=== PATIENT | male | born 1990 | race Caucasian/White ===

== ENCOUNTER 2024-09-18 09:38 | Outpatient (OUT) | payer OTHER, SELFPAY | END 2024-09-18 09:39 | disposition home or self-care (01) | LOC: PST 09:40 | PROVIDERS: Visit Provider Surgery | DX: Z01.818 Encounter for other preprocedural examination (principal); R22.31 Localized swelling, mass and lump, right upper limb ==

== ENCOUNTER 2024-09-30 12:40 | Day surgery (SDC) | payer OTHER, SELFPAY ==
[2024-09-30 12:50] VITALS: BP 133/82; PULSE 69; TEMP 36.2; O2SAT 98; BMI 30.5
--- OUTSIDE RECORDS SUMMARY | 2024-09-30 13:01 | XMS_ITS | CCD ---
Author Organization [facility] Inform ion Partnership [facility] Care Team Providers Care Visual Training Aide Name Role Phone RELL MARRERO Referring Unavailable RELL MARRERO Primary Care Unavailable LON MCCLAIN Attending Unavailable Rell Marrero MD Primary Care Provider Problems Problem Classification Problem Date Documented Da te Episodic/Chronic Other and unspecified benign neoplasm (2 sources) Lipoma of shoulder; Translations: [Benign lipomatous neoplasm of skin and subcutaneous tissue of right arm] 08-20-2024 Episodic Results Test Name Value Interpretation Reference Range Facil ity HF ALT (SGPT)on 02-20-2024 ALT [Catalytic activity/Vol] 56 U/L High 0-50 [facility] Comment on above: Performed By: #### H F BMP, HFAST, HFLIPD, HFALT, HFTSH, HFFT4 #### [address] [address] Ph. [phone] HF AST (SGOT)on 02-20-2024 AST [Catalytic activity/Vol] 33 U/L Normal 17-59 [facility] Comment on above: Performed By: #### H F BMP, HFAST, HFLIPD, HFALT, HFTSH, HFFT4 #### [address] [address] Ph. [phone] HF Basic Metabolic Panelon 0 02-20-2024 Calcium [Mass/Vol] 9.2 mg/dL Normal 8.4-10.2 [facility] Comment on above: Performed By: #### H F BMP, HFAST, HFLIPD, HFALT, HFTSH, HFFT4 #### [address] [address] Ph. [phone] Chloride [Moles/Vol] 106 mmol/L Normal 98-107 [facility] Comment on above: Performed By: #### H F BMP, HFAST, HFLIPD, HFALT, HFTSH, HFFT4 #### [address] [address] Ph. [phone] CO2 [Moles/Vol] 28 mmol/L Normal 22-32 [facility] Comment on above: Performed By: #### H F BMP, HFAST, HFLIPD, HFALT, HFTSH, HFFT4 #### [place] [address] Ph. [phone] Creatinine [Mass/Vol] 1.07 mg/dL Normal 0.66-1.25 [facility] Comment on above: Performed By: #### H F BMP, HFAST, HFLIPD, HFALT, HFTSH, HFFT4 #### [place] [address] Ph. [phone] GFR/1.73 sq M.predicted among non-blacks MDRD (S/P/Bld) [Vol rate/Area] 92 mL/min/{1.73_m2} Normal >60 [facility] Comment on above: Result Comment: GFR calculated using CKD-EPI (2020) formula.\X0D0A\Stage 1 Kidney damage (e.g., protein in the urine) with normal GFR >=90\X0D0A\Stage 2 Kidney damage with mild decrease in GFR 60-89\X0D0A\Stage 3a Moderate decrease in GFR 45-59\X0D0A\Stage 3b Moderate decrease in GFR 30-44\X0D0A\Stage 4 Severe reduction in GFR 15-29\X0D0A\Stage 5 Kidney failure <15 Performed By: #### H F BMP, HFAST, HFLIPD, HFALT, HFTSH, HFFT4 #### [place] [address] Ph. [phone] Glucose [Mass/Vol] 92 mg/dL Normal 65-100 [facility] Comment on above: Performed By: #### H F BMP, HFAST, HFLIPD, HFALT, HFTSH, HFFT4 #### [place] [id number] Ph. [phone] Potassium [Moles/Vol] 4.7 mmol/L Normal 3.6-5.0 [facility] Comment on above: Performed By: #### H F BMP, HFAST, HFLIPD, HFALT, HFTSH, HFFT4 #### [place] [address] Ph. [phone] Sodium [Moles/Vol] 142 mmol/L Normal 135-145 [facility] Comment on above: Performed By: #### H F BMP, HFAST, HFLIPD, HFALT, HFTSH, HFFT4 #### [place] [address] Ph. [phone] Urea nitrogen [Mass/Vol] 15 mg/dL Normal 9-20 [facility] Comment on above: Performed By: #### H F BMP, HFAST, HFLIPD, HFALT, HFTSH, HFFT4 #### [place] [address] Ph. [phone] HF CBCon 02-20-2024 Erythrocyte distribution width (RBC) [Ratio] 12.5 % Normal 11.5-14.5 [facility] Comment on above: Performed By: #### H FCBC #### [place] [id number] Ph. [phone] Hematocrit (Bld) [Volume fraction] 48 % Normal 42.0-52.0 [facility] Comment on above: Performed By: #### H FCBC #### [place] [address] Ph. [phone] Hemoglobin (Bld) [Mass/Vol] 16.2 g/dL Normal 13.5-17.5 [facility] Comment on above: Performed By: #### H FCBC #### [address] [address] Ph. [phone] MCH (RBC) [Entitic mass] 29.1 pg Normal 27.0-35.0 [facility] Comment on above: Performed By: #### H FCBC #### [place] [address] Ph. [phone] MCHC (RBC) [Mass/Vol] 33.8 g/dL Normal 32.0-36.0 [facility] Comment on above: Performed By: #### H FCBC #### [place] [address] Ph. [phone] MCV (RBC) [Entitic vol] 86.3 fL Normal 80.0-100.0 [facility] Comment on above: Performed By: #### H FCBC #### [place] [address] Ph. [phone] Platelet mean volume (Bld) [Entitic vol] 10.9 fL Normal 9.4-12.3 [facility] Comment on above: Performed By: #### H FCBC #### [place] [address] Ph. [phone] Platelets (Bld) [#/Vol] 279 10*3/uL Normal 150-450 [facility] Comment on above: Performed By: #### H FCBC #### [place] [address] Ph. [phone] RBC (Bld) [#/Vol] 5.56 10*6/uL Normal 4.70-6.10 [facility] Comment on above: Performed By: #### H FCBC #### [address] [place] [address] Ph. [phone] WBC (Bld) [#/Vol] 5.2 10*3/uL Normal 3.7-11.0 [facility] Comment on above: Performed By: #### H FCBC #### [place] [address] Ph. [phone] HF Free T4on 02-20-2024 Free T4 [Mass/Vol] 0.89 ng/dL Normal 0.78-2.19 [facility] Comment on above: Performed By: #### H F BMP, HFAST, HFLIPD, HFALT, HFTSH, HFFT4 #### [place] [id number] Ph. [phone] HF Lipid Panelon 02-20-2024 Cholesterol [Mass/Vol] 203 mg/dL High 100-200 [facility] Comment on above: Result Comment: <200 mg/dL is recommended cholesterol level. Performed By: #### H F BMP, HFAST, HFLIPD, HFALT, HFTSH, HFFT4 #### [place] [address] Ph. [phone] Cholesterol in HDL [Mass/Vol] 34 mg/dL Low >40 [facility] Comment on above: Performed By: #### H F BMP, HFAST, HFLIPD, HFALT, HFTSH, HFFT4 #### [address] [address] Ph. [phone] Cholesterol in LDL [Mass/Vol] 133 mg/dL High 20-100 [facility] Comment on above: Performed By: #### H F BMP, HFAST, HFLIPD, HFALT, HFTSH, HFFT4 #### [address] [address] Ph. [phone] Cholesterol.total/Ch olesterol in HDL [Mass ratio] 6 {ratio} High 1-5 [facility] Comment on above: Performed By: #### H F BMP, HFAST, HFLIPD, HFALT, HFTSH, HFFT4 #### [address] [address] Ph. [phone] Triglyceride [Mass/Vol] 180 mg/dL High 10-150 [facility] Comment on above: Performed By: #### H F BMP, HFAST, HFLIPD, HFALT, HFTSH, HFFT4 #### [address] [address] Ph. [phone] HF TSHon 02-20-2024 TSH 1.740 mIU/mL Normal 0.470-4.680 [facility] Comment on above: Performed By: #### H F BMP, HFAST, HFLIPD, HFALT, HFTSH, HFFT4 #### [address] [address] Ph. [phone] Vital Signs Date Time Vital Sign Value Performing Clinician Ady elkins 08-20-2024 09:50-0400 Body height 182.9 cm Little Bird Phone: [facility] [employer] 08-20-2024 09:50-0400 Body mass index (BMI) [Ratio] 31.19 kg/m2 Little Bird Phone: [facility] [employer] 08-20-2024 09:50-0400 Body weight 104.33 kg Little Bird Phone: [facility] [employer] 08-20-2024 09:50-0400 Diastolic blood pressure 74 mm[Hg] Little Bird Phone: [facility] [employer] 08-20-2024 09:50-0400 Heart rate 95 /min Little Bird Phone: [facility] [employer] 08-20-2024 09:50-0400 Respiratory rate 12 /min Little Bird Phone: [facility] 08-20-2024 09:50-0400 SaO2% (BldA) [Mass fraction] 96 % Lon Mcclain DO Work Phone: [facility] 08-20-2024 09:50-0400 Systolic blood pressure 118 mm[Hg] Lon Mcclain DO Work Phone: [facility] Encounters Encounter Date Encounter Type Care Provider Facility Start: 08-20-2024 End: 08-20-2024 Bamboo flowsheet Lon Mcclain DO Work Phone: [facility] Start: 08-20-2024 End: 08-20-2024 Bamboo flowsheet Lon Mcclain DO Work Phone: [facility] Start: 08-20-2024 End: 08-20-2024 ambulatory LON MCCLAIN Not Available Start: 08-20-2024 End: 08-20-2024 Office outpatient new 45 minutes Lon Mcclain DO Work Phone: [facility] Comment on above: Lipoma of right shou lder (Primary Dx) Start: 02-20-2024 ambulatory [facility] Payers Date Payer Category Payer Managed Care HMO (unspecified) [employer]ETM[employer] [id number] 2011-Present [address] [place] [address] O [id number] 2011 Private Health Insurance [id number] 1988 Unknown [id number] 1988 Unknown [id number] Social History Date Type Detail Facility [facility] Start: 1990 Sex assigned at Not on file [facility] Gender identity Not [facility] History of Present illness Narrative 08-20-2024 Lon Mcclain DO - 08/20/2024 9:45 AM EDT Note Date & Type Note Facility 08-20-2024 History of Presen t illness Narrative General Surgery H&P J Luis Robert 1990 J Luis Robert is a 34 y.o. male presents with chief complaint of Cyst (Pt presents today for a cyst on his right shoulder. He states that he has had the cyst for about 2 years and at first it was very small and did not bother him. He states that just recently it has grown in size and is now getting painful. He states that it does cause him neck pain now, PCP stated that it was too big to remove in office. ) Denies hx of excessive weight loss. Denies fevers, chills, or sweats. Denies nausea or vomiting. Discussed surgery and risks for excision of right shoulder cyst procedure. Patient would like to proceed with surgery. SUBJECTIVE: MEDICATIONS: ALLERGIES No current outpatient medications No Known Allergies PAST MEDICAL HISTORY: SOCIAL HISTORY SURGICAL HISTORY: History reviewed. No pertinent past medical history. History reviewed. No pertinent surgical history. No family history on file. No Known Allergies History reviewed. No pertinent surgical history. Tobacco Use: High Risk (02/19/2024) Re[facility] from [facility] Patient History Smoking Tobacco Use: Never Smokeless Tobacco Use: Current Passive Exposure: Not on file Alcohol Use: Not on file Depression: Not on file Physical Activity: Not on file REVIEW OF SYMPTOMS: Review of Systems All other systems reviewed and are negative. 10 systems were reviewed. Positives noted above. Remainder are negative per CMS guidelines OBJECTIVE: Visit Vitals BP 118/74 Pulse 95 Resp 12 Ht 6' Wt 230 lb SpO2 96% BMI 31.19 kg/m BSA 2.3 m Physical Exam Vitals reviewed. General: AAOx3, NAD Head: atraumatic normocephalic Neck: trachea midline. No masses or lymphadenopathy Heart: Regular rate and rhythm Lungs: equal chest rise and fall, non labored breathing Right shoulder mass at top of trapezius muscle, approx 3x2cm, mild tenderness to touch, no erythema or surrounding issues Abdomen: soft, nontender, and non distended Ext: motor 5/5 all extremities with no gross deformities Psych: alert and oriented, behavior appropriate ASSESSMENT AND PLAN: Assessment/Plan Diagnoses and all orders for this visit: Lipoma of right shoulder Patient informed of the risks of excision of right shoulder cyst procedure which include but not limited to bleeding, scarring, damage to nearby structures, chronic pain, wound healing issues, possible need for more procedures and risks of anesthesia. Patient understood risks and signed informed consent. Will schedule at patient's earliest convenience. Thank you, Di Mcclain DO documented in this encounter [facility] Evaluation note Note Date & Type Note Facility Evaluation note Diagnosis Lipoma of right shoulder- Primary documented in this encounter [facility] Summary Purpose Family History No Family History Records FoundNo Family History Records Found Advance Directives No Advanced Directives Records FoundNo Advanced Directives Records Found Additional Source Comments (unrecognized sect ion and content) No Status Records FoundNo Status Records Found INFORMATION SOURCE (unrecogn ized section and content) DATE CREATED AUTHOR 02/21/2024 [facility] DATE CREATED AUTHOR AUTHOR'S ORGANIZ ATION 08/21/2024 [facility] EPIC Reason for Visit (unrecogniz ed section and content) Reason Comments Cyst Pt presents today fo r a cyst on his right shoulder. He states that he has had the cyst for about 2 years and at first it was very small and did not bother him. He states that just recently it has grown in size and is now getting painful. He states that it does cause him neck pain now, PCP stated that it was too big to remove in office. Care Teams (unrecognized sec tion and content) Visual Training Aide Relationship Specialty Start Date End Date Rell Marrero MD [address] [place] [address] PCP - General Family Medicine 08/20/24 Visual Training Aide Relationship Specialty Start Date End Date Rell Marrero MD [address] [place] [address] PCP - General Family Medicine 08/20/24 FOR RECORDS PERTAINING TO PATIENTS WHO ARE OR HAVE BEEN ENROLLED IN A CHEMICAL DEPENDENCY/SUBSTANCEABUSE PROGRAM, SOME INFORMATION MAY BE OMITTED. This clinical summary was aggregated from multiple sources. Caution should be exercised in using it in the provision of clinical care. This summary normalizes information from multiple sources, and as a consequence, information in this document may materially change the coding, format and clinical context of patient data. In addition, data may be omitted in some cases. CLINICAL DECISIONS SHOULD BE BASED ON THE PRIMARY CLINICAL RECORDS. [facility]. provides no warranty or guarantee of the accuracy or completeness of information in this document.
[2024-09-30] MEDS: 0.9 % SODIUM CHLORIDE 500 ML 50 ML IV (13:14)
--- NOTE | 2024-09-30 13:49 | W.PM.PROCNOT ---
Date of procedure: 09/30/24 Pre-op diagnosis: Right posterior shoulder mass Procedure: Excision of right posterior back lesion Procedure Details The patient was taken to Operating Room, identified as the correct patient and the procedure verified. A Time Out was held and the above information confirmed. The patient was placed in left lateral position and anesthesia was induced per anesthesia team, along with placement of EPC cuffs. The right upper back was was prepped and draped in a sterile fashion. The area of planned incision was injected with 1% lidocaine with epi, approximately 15ml was used. A 15 blade was used to make a linear style incision over the right upper back lesion along the lines of Wood. Incision was approximately 5 cm in length. Use of careful sharp and blunt dissection was carried out to remove the lesion in its entirety. It was an approximate 4x5cm lipomatous mass that was deep to the muscular fascia. The lesion was sent to pathology. The skin edges and incision site deep tissues were cauterized to ensure proper hemostasis. The skin incision was closed in a layered fashion. 3-0 Vircyl for the muscle fascia layer and then 3-0 vicryl for deep dermal sutures followed by a running 3-0 monocryl subcuticular running stitch. The area was cleansed and skin glue and steri strips were then applied. Instrument, sponge, and needle counts were correct at the conclusion of the case. Patient tolerated the procedure well without any complications.? Patient was transferred to PACU in stable condition. Anesthesia: MAC Surgeon: Matthew Mcclain Estimated blood loss (mL): 5 Pathology: other (lipoma mass ) Condition: stable Disposition: PACU
[2024-09-30] MEDS: CEFAZOLIN SODIUM 2 GM/50 ML D5W PREMIX IV (15:29)
[2024-09-30] MEDS: LIDOCAINE HCL 1%-EPINEPHRINE 1:100,000 20 ML MDV 15 ML INJ (15:47)
[2024-09-30] MEDS: LACTATED RINGER'S SOLUTION 1,000 ML 50 ML IV (16:25)
[2024-09-30 17:01] VITALS: BP 122/86; PULSE 85; TEMP 36.1; O2SAT 95
[2024-09-30 17:16] VITALS: BP 114/83; PULSE 73; O2SAT 98
[2024-09-30 17:31] VITALS: BP 131/84; PULSE 74; O2SAT 96
== END 2024-09-30 17:31 | disposition home or self-care (01) ==
PROVIDERS: Visit Provider Surgery
PROC: (CPT 01610; principal; 2024-09-30 14:00)
DX: D17.21 Benign lipomatous neoplasm of skin and subcutaneous tissue of right arm (principal)
CPT/HCPCS: 01610; 23076; 88304; J0690; J2250; J2704; J3010